=== PATIENT | male | born 1975 | race Caucasian/White ===

== ENCOUNTER 2020-01-12 18:14 | Emergency (ER) | payer MEDICAID ==
[~2020-01-12] VITALS: Ht 167.6 cm; Wt 90.7 kg
--- NOTE | 2020-01-12 18:17 | NUR ---
Patient to ER bed 03 to gown for evaluation. Side rails up.
[2020-01-12 18:20] VITALS: BP_SYST 120
--- NOTE | 2020-01-12 18:20 | NUR ---
Patient brought in [employer] for possible overdose. [employer] reports patient was found at [facility] [place] [address] in [place] unresponsive, agonal breathing, GCS of 3. Law enforcement administered Narcan 2 mg Intranasally with no response. EMS obtained 18 gauge angiocath to the right AC and administered Narcan 2 mg IVP with response. Patient arrives AO x3, pinpoint pupils, No voiced complaints. Vital sign Stable. Glucuse 121. Denies any pain. No other complaints/injuries per patient or as noted. Will continue to monitor.
--- NOTE | 2020-01-12 18:21 | NUR ---
ANDREA Abarca at bedside examining patient.
[2020-01-12] MEDS ORDERED: NACL 0.9% 1,000 ML IV ONE (18:30)
--- NOTE | 2020-01-12 18:55 | NUR ---
NS 1 liter currently infusing per MD order
--- NOTE | 2020-01-12 19:05 | NUR ---
Care endorsed to Libby IVEY.
[2020-01-12 19:33] LABS: BASOPHILS # (AUTO) 0.1 K/uL (0.0-0.2); BASOPHILS % (AUTO) 0.9 % (0.0-2.0); EOSINOPHILS # (AUTO) 0.1 K/uL (0.0-0.4); EOSINOPHILS % (AUTO) 1.3 % (0.0-4.0); HEMATOCRIT 36.5 % (36-54); HEMOGLOBIN 12.2 g/dL (14.0-18.0); LYMPHOCYTES # (AUTO) 1.3 K/uL (1.0-5.5); LYMPHOCYTES % (AUTO) 21.3 % (20.5-51.5); MEAN CORPUSCULAR HEMOGLOBIN 30 pg (27-31); MEAN CORPUSCULAR HGB CONC 34 % (32-36); MEAN CORPUSCULAR VOLUME 89 fL (79.0-98.0); MONOCYTES # (AUTO) 0.6 K/uL (0.0-1.0); MONOCYTES % (AUTO) 9.4 % (1.7-9.3); NEUTROPHILS # (AUTO) 4.1 K/uL (1.8-7.7); NEUTROPHILS % (AUTO) 67.1 % (40.0-70.0); PLATELET COUNT (AUTO) 227 K/uL (130-430); RED BLOOD CELL COUNT(AUTO) 4.08 MIL/uL (4.2-6.2); RED CELL DISTRIBUTION WIDTH 14.5 % (9.0-15.0); WHITE BLOOD COUNT (AUTO) 6.1 K/uL (4.8-10.8)
--- NOTE | 2020-01-12 19:42 | NUR ---
PT RESTING IN BED. PT SPEAKING IN COMPREHENDIBLE SENTENCES. VITAL SIGNS STABLE. WILL CONTINUE TO MONITOR.
[2020-01-12 19:55] LABS: ANION GAP 4 (5-15); CALCIUM 8.1 mg/dL (8.4-11.0); CHLORIDE 108 mmol/L (98-107); CREATININE 1.08 mg/dL (0.55-1.30); GLUCOSE 118 mg/dL (70-99); POTASSIUM 3.9 mmol/L (3.5-5.1); SODIUM SERUM 139 mmol/L (136-145); UREA NITROGEN, BLOOD 22 mg/dL (8-21)
[2020-01-12 19:59] LABS: GFR AFRICAN AMERICAN 95 mL/min (>90)
[2020-01-12 20:04] LABS: ALANINE AMINOTRANSFERASE 80 U/L (12-78); ALBUMIN 3.2 g/dL (3.4-4.8); ASPARTATE AMINOTRANSFERASE 61 U/L (10-37); TOTAL BILIRUBIN 0.8 mg/dL (0.0-1.0)
[2020-01-12 20:08] LABS: ALCOHOL, BLOOD < 3 mg/dL (<10)
--- NOTE | 2020-01-12 20:50 | NUR ---
PT WAKEN UP TO GIVE URINE SAMPLE. URINAL AT BEDSIDE.
--- NOTE | 2020-01-12 21:20 | NUR ---
PT SLEEPING COMFORTABLY IN BED. VITAL SIGNS STABLE.
[2020-01-12 22:36] LABS: CLARITY/URINE SLIGHTLY HAZY (CLEAR); COLOR,URINE YELLOW (YELLOW); GLUCOSE,URINE NEGATIVE (NEGATIVE); PROTEIN URINE 1+ (NEGATIVE)
[2020-01-12 22:37] LABS: BILIRUBIN,URINE NEGATIVE (NEGATIVE); BLOOD, URINE NEGATIVE (NEGATIVE); KETONES,URINE TRACE (NEGATIVE); LEUKOCYTE ESTERASE ,URINE NEGATIVE (NEGATIVE); NITRITE, URINE NEGATIVE (NEGATIVE)
[2020-01-12 22:39] LABS: BARBITURATE, URINE NEGATIVE (NEG <=200); BENZODIAZEPINE, URINE NEGATIVE (NEG <=150); CANNABINOID, URINE POSITIVE (NEG <=50); COCAINE, URINE NEGATIVE (NEG <=150); METHAMPHETAMINES SCREEN,URINE NEGATIVE (NEG <=500); OPIATE, URINE NEGATIVE (NEG <=100); PHENCYCLIDINE SCREEN,URINE NEGATIVE (NEG <=25); UR TRICYCLIC ANTIDEPRESSANTS NEGATIVE (NEG <=300); URINE AMPHETAMINE POSITIVE (NEG <=500); URINE METHADONE NEGATIVE (NEG <=200); URINE OXYCODONE SCREEN NEGATIVE (NEG <=100); URINE PROPOXYPHENE SCREEN NEGATIVE (NEG <=300)
[2020-01-12 22:43] VITALS: BP_SYST 115
[2020-01-12 22:47] LABS: BACTERIA,URINE FEW /HPF (None Seen); FINE GRANULAR CASTS,URINE 0-10 /LPF (None Seen); MUCUS,URINE 1+ /LPF (None Seen); RBC,URINE 0-3 /HPF (0-3); WBC,URINE 0-3 /HPF (0-3)
== END 2020-01-12 22:43 | disposition home or self-care (01) ==
LOC: EDBD 18:14 → SED 18:14
DX: T40.1X1A Poisoning by heroin, accidental (unintentional), initial encounter (principal); F15.10 Other stimulant abuse, uncomplicated; Y92.89 Other specified places as the place of occurrence of the external cause
CPT/HCPCS: 36415; 80053; 80307; 81000; 84484; 85025; 93005; 99285; G0482; J7030

== ENCOUNTER 2021-09-29 12:01 | Emergency (ER) | payer SELFPAY ==
[~2021-09-29] VITALS: Ht 182.9 cm; Wt 99.8 kg
[2021-09-29 12:01] VITALS: BP_SYST 134
[2021-09-29 12:20] VITALS: BP_SYST 134
== END 2021-09-29 12:24 ==
LOC: SED 12:01
DX: Z02.89 Encounter for other administrative examinations (principal)
CPT/HCPCS: 99283